=== PATIENT | male | born 1995 | race African-American/Black ===

== ENCOUNTER 2016-11-23 20:38 | Emergency (ER) | payer BC, OTHER ==
--- NOTE | ~2016-11-23 | CR127 ---
[facility] A Service of [facility] & [facility] / [facility] RADIOLOGY TEXT RESULTS PATIENT: HARRY SCANLON LOCATION: SED : [birth year] UNIT #: [id number] AGE: [address]: SCOT LEVINE SEX: M ORDER DR: [id number] [place] [id number] MR#: [id number] Acc #: [id number] NAME: HARRY SCANLON : 1995 SEX: M STUDY DATE/TIME: 11/23/2016 20:59 UNIT: SED ROOM: STUDY DESCRIPTION: CR Foot Complete Min 3 View Rt Attending Physician: Scot Levine Ordering Physician: Scot Levine Primary Care Physician: No Primary Care Physician MEDICAL IMAGING REPORT This report is preliminary unless electronic signature is present. EXAM Right foot series INDICATIONS Right foot injury with concern for foreign body or glass in the right first digit today. PROCEDURE Three views of the right foot COMPARISON None FINDINGS No acute fracture. No dislocation. No visible radiodense foreign bodies. IMPRESSION No acute findings. No visible radiodense foreign body. Dictated by... Miko Ramsey M.D. THIS IS AN ELECTRONICALLY VERIFIED REPORT Miko Ramsey M.D. at 11/24/2016 2:26 PM YAW/yessenia TD: 11/23/2016 23:07 JOB #: [id number] MEDICAL IMAGING REPORT Page 1 of 1
[2016-11-23] MEDS ORDERED: NO MEDICATIONS (20:48)
== END 2016-11-23 22:25 | disposition home or self-care (01) ==
LOC: SED 20:38
DX: M79.674 Pain in right toe(s) (principal); F17.200 Nicotine dependence, unspecified, uncomplicated
CPT/HCPCS: 73630; 99283